=== PATIENT | male | born 1990 | race Caucasian/White ===

== ENCOUNTER 2018-07-31 22:02 | Emergency (ER) | payer BC, MEDICAID ==
[2018-08-01] MEDS: HYDROCODONE/APAP (5/325) TAB PO (00:01)
== END 2018-08-01 02:34 | disposition home or self-care (01) ==
LOC: FTE 22:02
DX: S06.0X0A Concussion without loss of consciousness, initial encounter (principal); S10.93XA Contusion of unspecified part of neck, initial encounter; S20.219A Contusion of unspecified front wall of thorax, initial encounter; V43.52XA Car driver injured in collision with other type car in traffic accident, initial encounter
CPT/HCPCS: 70450; 71046; 72125; 99284-25